=== PATIENT | male | born 1975 | race Hispanic/Latino ===

== ENCOUNTER 2018-10-08 11:59 | Emergency (ER) | payer SELFPAY ==
[2018-10-08] MEDS ORDERED: MORPHINE 4 MG/ML SYR ONE (14:35)
[2018-10-08] MEDS ORDERED: ONDANSETRON 4 MG (ODT) TAB ONE (14:35)
--- NOTE | 2018-10-08 15:01 | RAD REPORT ---
EXAM DESCRIPTION: Arcelia Evans And Usman (2 Views)10/08/2018 1:24 pm CLINICAL HISTORY: Chest pain COMPARISON: None FINDINGS: Moderately displaced fracture involves the distal left clavicle. Nondisplaced fractures involve several upper and mid left ribs. A pneumothorax is not seen. A small p leural effusion with left basilar atelectasis The right lung appears clear. Heart is normal size
--- NOTE | 2018-10-08 15:15 | RAD REPORT ---
EXAM DESCRIPTION: CT - Thorax Wo Con - 10/08/2018 2:37 pm CLINICAL HISTORY: Chest pain COMPARISON: None TECHNIQUE: Computed axial tomography of the chest was obtained. Contrast was not requested. All CT scans are performed using dose optimization technique as appropriate and may include automated exposure control or mA/KV adjustment according to patient size. FINDINGS: The evaluation of mediastinum, kirk and vessels is limited secondary to lack of IV contras t administration. Nondisplaced fractures involve left second, third and fourth ribs. Nondisplaced fracture involves lef t second rib. Minimally displaced fracture involves the left third rib. Nondisplaced fracture involve s the left fourth rib. Mildly displaced fracture involves the left fifth rib. . Small left pleural effusion Distal left clavicular fracture incompletely evaluated on this exam Mild left basilar atelectasis IMPRESSION: Multiple left rib fractures with small left pleural effusion Left clavicular fracture
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
== END 2018-10-08 15:56 | disposition home or self-care (01) ==
LOC: ER 11:59
DX: S42.022A Displaced fracture of shaft of left clavicle, initial encounter for closed fracture (principal); S22.42XA Multiple fractures of ribs, left side, initial encounter for closed fracture; V49.40XA Driver injured in collision with unspecified motor vehicles in traffic accident, initial encounter
CPT/HCPCS: 71046; 71250; 96372; 99284